=== PATIENT | female | born 1960 | race African-American/Black ===

== ENCOUNTER 2017-09-10 07:32 | Day surgery (SDC) | payer OTHER ==
[2017-09-04 16:12] VITALS: BMI 28.1
[~2017-09-10 07:32] MED LIST: LACTATED RINGERS 1,000 ML IV SCH
[2017-09-10 09:10] LABS: Glucose,Whole Blood 81 mg/dL (75-99)
[2017-09-10 09:14] VITALS: RESP 16; TEMP 97
[2017-09-10] MEDS ORDERED: LIDOCAINE 1% 20 ML VIAL (10MG/ML) FOR IV START INTRADERMA ONE (09:15)
[2017-09-10] MEDS ORDERED: PROPOFOL 10 MG/ML 20 ML VIAL IV ONE (09:33)
--- NOTE | 2017-09-10 09:54 | P.PCN ---
Date of Procedure: 09/10/17 Procedure(s) Performed: Procedure: Total colonoscopy. Preoperative diagnosis: Screening for neoplasia. Postoperative diagnosis: Mild sigmoid diverticulosis with no evidence of acute diverticulitis, strictures, polyps or cancer. Preparation: HalfLytely prep. Sedation: Was provided by anesthesia. Brief clinical history: The patient is a 56-year-old female who is scheduled for this evaluation for screening for neoplasia because of family history of colon cancer in her father. He had a prior exam more than 10 years ago. She has no abdominal complaints, bleeding or anemia. Procedure: With the patient on her left lateral decubitus position and after informed consent and adequate sedation the perianal area was inspected and it did not show any fissures or fistulas. There were no masses felt on digital rectal examination. The Olympus CFQ 160L video colonoscope was then inserted in the rectum in the usual fashion and advanced to the cecum. The mucosa appeared healthy. No polyps or tumors were seen. Mild sigmoid diverticulosis was noted with no evidence of acute diverticulitis or strictures. I retroflexed the endoscope in the rectum before the endoscope was withdrawn. The patient tolerated the procedure well. Plan: The patient was reassured. Discussed dietary measures. She will follow- up with you as planned and I recommended repeat exam in 5 years because of her family history.
[2017-09-10 10:16] VITALS: BP 109/64; PULSE 84
== END 2017-09-10 10:32 | disposition home or self-care (01) ==
LOC: ORWHC2ENDO 07:32
DX: Z12.11 Encounter for screening for malignant neoplasm of colon (principal); K57.30 Diverticulosis of large intestine without perforation or abscess without bleeding; E11.9 Type 2 diabetes mellitus without complications; E03.9 Hypothyroidism, unspecified; F17.200 Nicotine dependence, unspecified, uncomplicated; Z80.0 Family history of malignant neoplasm of digestive organs; Z79.84 Long term (current) use of oral hypoglycemic drugs; Z79.899 Other long term (current) drug therapy
CPT/HCPCS: G0105; J2704

== ENCOUNTER 2020-12-09 10:52 | Observation (INO) | payer BC, OTHER ==
--- NOTE | 2020-12-09 11:21 | ED ---
General Adult HPI - General Chief complaint: Syncope Stated complaint: syncope Time Seen by Provider: 12/09/20 10:57 Source: patient, RN notes reviewed Mode of arrival: ambulatory Limitations: no limitations - History of Present Illness Initial comments: Patient is a pleasant 60-year-old female presenting to the emergency Department with complaints of syncopal episode. Episode occurred in the middle the night. Patient did get up out of bed. Patient did take her time and did rest at the side of the bed for several minutes. Patient then walked a proximally 20 feet and suddenly things surgical dark. Patient then passed out. Patient did strike her knees on the floor. Patient has chronic severe arthritis of the knees. Patient does not believe she hit her head but did lose consciousness. No neck or back pain. No chest pain or dyspnea. No abdominal discomfort. Patient states over the past 6 months she has had several near-syncopal episodes however has never passed out before. - Related Data Home Medications Medication Instructions Recorded Confirmed Levothyroxine Sodium [Synthroid] 50 mcg PO AC-BRKFST 09/04/17 12/09/20 Allergies Allergy/AdvReac Type Severity Reaction Status Date / Time No Known Allergies Allergy Verified 12/09/20 12:51 Review of Systems ROS Statement: Those systems with pertinent positive or pertinent negative responses have been documented in the HPI. ROS Other: All systems not noted in ROS Statement are negative. Constitutional: Denies: fever Eyes: Denies: eye pain ENT: Denies: ear pain Respiratory: Denies: cough, dyspnea Cardiovascular: Denies: chest pain Endocrine: Denies: fatigue Gastrointestinal: Denies: abdominal pain Genitourinary: Denies: dysuria Musculoskeletal: Denies: back pain Skin: Denies: rash Neurological: Denies: headache, weakness, confusion Past Medical History Past Medical History: Diabetes Mellitus, Thyroid Disorder Additional Past Medical History / Comment(s): freq diarhea History of Any Multi-Drug Resistant Organisms: None Reported Past Surgical History: Breast Surgery Additional Past Surgical History / Comment(s): rt breast bx,tooth extraction Additional Past Anesthesia/Blood Transfusion Reaction / Comment(s): no hx general anesthesia Past Psychological History: No Psychological Hx Reported Smoking Status: Current every day smoker Past Alcohol Use History: None Reported Past Drug Use History: None Reported - Past Family History Mother Family Medical History: No Reported History Father Family Medical History: Cancer Additional Family Medical History / Comment(s): colon CA Sister(s) Family Medical History: Cancer Additional Family Medical History / Comment(s): skin General Exam Limitations: no limitations General appearance: alert, in no apparent distress Head exam: Present: atraumatic, normocephalic Eye exam: Present: normal appearance, PERRL, EOMI ENT exam: Present: normal oropharynx Neck exam: Present: normal inspection. Absent: tenderness Respiratory exam: Present: normal lung sounds bilaterally Cardiovascular Exam: Present: regular rate, normal rhythm Expanded Peripheral pulses: 2+: Radial (R), Radial (L), Posterior Tibialis (R), Posterior Tibialis (L) GI/Abdominal exam: Present: soft. Absent: tenderness, pulsatile mass Extremities exam: Present: other (Bilateral anterior knee tenderness. ) Neurological exam: Present: alert, oriented X3, CN II-XII intact. Absent: motor sensory deficit Expanded Neurological exam: Present: protecting the airway Speech: Present: fluid speech Cranial nerves: EOM's Intact: Normal, Facial Sensation: Normal Motor strength exam: RUE: 5, LUE: 5, RLE: 5, LLE: 5 Eye Response: (4) open spontaneously Motor Response: (6) obeys commands Verbal Response: (5) oriented Psychiatric exam: Present: normal affect, normal mood Skin exam: Present: normal color Course Vital Signs 12/09/20 12/09/20 10:53 11:11 Temperature 97.7 F 97.7 F Pulse Rate 97 85 Respiratory 20 16 Rate Blood Pressure 118/74 112/68 O2 Sat by Pulse 98 100 Oximetry EKG Findings - EKG Comments: EKG Findings:: Normal sinus rhythm 73. AK 140. QRS 70. QT 374. QTC 412. Normal axis. Normal QRS. No acute ST change. Medical Decision Making - Medical Decision Making Patient reevaluated and resting comfortably in bed. Patient remained symptom free. Patient updated on results and plan. Case was discussed with Dr. white, covering for Dr. Walker, who will admit. Cardiology will be placed on consult - Lab Data Result diagrams: 12/09/20 11:32 12/09/20 11:32 Lab Results 12/09/20 12/09/20 12/09/20 Range/Units 11:32 11:32 11:32 WBC 9.7 (3.8-10.6) k/uL RBC 3.94 (3.80-5.40) m/uL Hgb 12.3 (11.4-16.0) gm/dL Hct 36.5 (34.0-46.0) % MCV 92.6 (80.0-100.0) fL MCH 31.2 (25.0-35.0) pg MCHC 33.7 (31.0-37.0) g/dL RDW 13.5 (11.5-15.5) % Plt Count 260 (150-450) k/uL MPV 7.6 Neutrophils % 77 % Lymphocytes % 17 % Monocytes % 4 % Eosinophils % 1 % Basophils % 0 % Neutrophils # 7.4 (1.3-7.7) k/uL Lymphocytes # 1.6 (1.0-4.8) k/uL Monocytes # 0.4 (0-1.0) k/uL Eosinophils # 0.1 (0-0.7) k/uL Basophils # 0.0 (0-0.2) k/uL PT 9.8 (9.0-12.0) sec INR 0.9 (<1.2) APTT 24.8 (22.0-30.0) sec Sodium (137-145) mmol/L Potassium (3.5-5.1) mmol/L Chloride (98-107) mmol/L Carbon Dioxide (22-30) mmol/L Anion Gap mmol/L BUN (7-17) mg/dL Creatinine (0.52-1.04) mg/dL Est GFR (CKD-EPI)AfAm (>60 ml/min/1.73 sqM) Est GFR (CKD-EPI)NonAf (>60 ml/min/1.73 sqM) Glucose (74-99) mg/dL Calcium (8.4-10.2) mg/dL Magnesium (1.6-2.3) mg/dL Total Bilirubin (0.2-1.3) mg/dL AST (14-36) U/L ALT (4-34) U/L Alkaline Phosphatase (38-126) U/L Troponin I (0.000-0.034) ng/mL Total Protein (6.3-8.2) g/dL Albumin (3.5-5.0) g/dL Urine Color Light Yellow Urine Appearance Clear (Clear) Urine pH 8.0 (5.0-8.0) Ur Specific [place] 1.015 (1.001-1.035) Urine Protein Negative (Negative) Urine Glucose (UA) Negative (Negative) Urine Ketones Negative (Negative) Urine Blood Negative (Negative) Urine Nitrite Negative (Negative) Urine Bilirubin Negative (Negative) Urine Urobilinogen <2.0 (<2.0) mg/dL Ur Leukocyte Esterase Trace H (Negative) Urine RBC 2 (0-5) /hpf Urine WBC <1 (0-5) /hpf Ur Squamous Epith Cells 3 (0-4) /hpf Urine Mucus Occasional H (None) /hpf 12/09/20 12/09/20 Range/Units 11:32 11:32 WBC (3.8-10.6) k/uL RBC (3.80-5.40) m/uL Hgb (11.4-16.0) gm/dL Hct (34.0-46.0) % MCV (80.0-100.0) fL MCH (25.0-35.0) pg MCHC (31.0-37.0) g/dL RDW (11.5-15.5) % Plt Count (150-450) k/uL MPV Neutrophils % % Lymphocytes % % Monocytes % % Eosinophils % % Basophils % % Neutrophils # (1.3-7.7) k/uL Lymphocytes # (1.0-4.8) k/uL Monocytes # (0-1.0) k/uL Eosinophils # (0-0.7) k/uL Basophils # (0-0.2) k/uL PT (9.0-12.0) sec INR (<1.2) APTT (22.0-30.0) sec Sodium 134 L (137-145) mmol/L Potassium 4.9 (3.5-5.1) mmol/L Chloride 99 (98-107) mmol/L Carbon Dioxide 25 (22-30) mmol/L Anion Gap 10 mmol/L BUN 19 H (7-17) mg/dL Creatinine 1.05 H (0.52-1.04) mg/dL Est GFR (CKD-EPI)AfAm 66 (>60 ml/min/1.73 sqM) Est GFR (CKD-EPI)NonAf 57 (>60 ml/min/1.73 sqM) Glucose 181 H (74-99) mg/dL Calcium 9.2 (8.4-10.2) mg/dL Magnesium 2.2 (1.6-2.3) mg/dL Total Bilirubin 0.4 (0.2-1.3) mg/dL AST 26 (14-36) U/L ALT 16 (4-34) U/L Alkaline Phosphatase 56 (38-126) U/L Troponin I <0.012 (0.000-0.034) ng/mL Total Protein 7.1 (6.3-8.2) g/dL Albumin 4.2 (3.5-5.0) g/dL Urine Color Urine Appearance (Clear) Urine pH (5.0-8.0) Ur Specific [place] (1.001-1.035) Urine Protein (Negative) Urine Glucose (UA) (Negative) Urine Ketones (Negative) Urine Blood (Negative) Urine Nitrite (Negative) Urine Bilirubin (Negative) Urine Urobilinogen (<2.0) mg/dL Ur Leukocyte Esterase (Negative) Urine RBC (0-5) /hpf Urine WBC (0-5) /hpf Ur Squamous Epith Cells (0-4) /hpf Urine Mucus (None) /hpf - Radiology Data Radiology results: report reviewed (Computed tomography scan of the brain shows atrophy and chronic small vessel change without acute process.), image reviewed (Two-view chest x-ray shows no acute process. Bilateral knee x-ray shows no fracture or dislocation. Osteoarthritis) Disposition Clinical Impression: Syncope Disposition: ADMITTED IP TO THIS HOSP Is patient prescribed a controlled substance at d/c from ED?: No Referrals: Michael Saravia MD [Primary Care Provider] - 1-2 days Decision Time: 12:56
[2020-12-09 11:53] LABS: Basophils % (A) 0 %; Eosinophils # (A) 0.1 k/uL (0-0.7); Eosinophils % (A) 1 %; HCT 36.5 % (34.0-46.0); HGB 12.3 gm/dL (11.4-16.0); Lymphocytes # (A) 1.6 k/uL (1.0-4.8); Lymphocytes % (A) 17 %; MCH 31.2 pg (25.0-35.0); MCHC 33.7 g/dL (31.0-37.0); MCV 92.6 fL (80.0-100.0); Mean Platelet Volume 7.6; Monocytes # (A) 0.4 k/uL (0-1.0); Monocytes % (A) 4 %; Neutrophils # (A) 7.4 k/uL (1.3-7.7); Neutrophils % (A) 77 %; Platelet Count 260 k/uL (150-450); RBC 3.94 m/uL (3.80-5.40); RDW 13.5 % (11.5-15.5); WBC 9.7 k/uL (3.8-10.6)
[2020-12-09 11:55] LABS: Appearance,Urine Clear (Clear); Bilirubin,Urine Negative (Negative); Blood,Urine Negative (Negative); Color,Urine Light Yellow; Glucose,Urine (UA) Negative (Negative); Ketones,Urine Negative (Negative); Leukocyte Esterase,Urine Trace (Negative); Mucus,Urine Occasional /hpf; Nitrite,Urine Negative (Negative); Protein,Urine Negative (Negative); RBC,Urine 2 /hpf (0-5); Specific Gravity,Urine 1.015 (1.001-1.035); Squamous Epithelial Cell,Urine 3 /hpf (0-4); Urobilinogen,Urine <2.0 mg/dL (<2.0); WBC,Urine <1 /hpf (0-5)
--- NOTE | 2020-12-09 11:58 | CT ---
EXAMINATION TYPE: CT brain wo con DATE OF EXAM: 12/09/2020 COMPARISON: None HISTORY: Syncope CT DLP: 1013.[address] of the brain was performed. The ventricles, basal cisterns and sulci overlying the cerebral convexities demonstrate mild enlargem ent. There is no evidence for intracranial hemorrhage or sulcal effacement. There is decreased attenuation about the periventricular white matter and deep white matter of both c erebral hemispheres, compatible with chronic small vessel ischemia. Differential diagnosis does inclu de demyelination. No mass effects are seen.No midline shift. Osseous calvarium is intact. If symptoms persist consider MRI. IMPRESSION: 1. Age related atrophic and chronic small vessel ischemic change without acute intracranial process s een at this time.
[2020-12-09 12:04] LABS: Albumin 4.2 g/dL (3.5-5.0); Calcium 9.2 mg/dL (8.4-10.2); Magnesium 2.2 mg/dL (1.6-2.3); Potassium 4.9 mmol/L (3.5-5.1); Total Bilirubin 0.4 mg/dL (0.2-1.3); Total Protein 7.1 g/dL (6.3-8.2)
[2020-12-09 12:08] LABS: INR 0.9 (<1.2); Partial Thromboplastin Time 24.8 sec (22.0-30.0); Prothrombin Time 9.8 sec (9.0-12.0)
--- NOTE | 2020-12-09 12:27 | XR ---
EXAMINATION TYPE: XR chest 2V DATE OF EXAM: 12/09/2020 COMPARISON: NONE HISTORY: Syncope TECHNIQUE: Frontal and lateral views of the chest are obtained. FINDINGS: There is no focal air space opacity, pleural effusion, or pneumothorax seen. The cardiac silhouette size is within normal limits. There are overlying leads. There is a gentle spinal curvatu re which may be positional. The osseous structures are intact. IMPRESSION: No acute cardiopulmonary process.
--- NOTE | 2020-12-09 12:29 | XR ---
Bilateral knees HISTORY: Trauma and pain 3 views of each knee submitted There is marginal spurring is present in the medial compartments and patellofemoral joints greater th an lateral compartments, joint space loss is present greater than the medial compartment on the left than on the right and at the patellofemoral joints. Alignment and bone mineralization are maintained. Suprapatellar increased density is present consistent with joint effusions. IMPRESSION: No fracture or dislocation. Osteoarthritis.
[2020-12-09] MEDS ORDERED: NALOXONE 0.4 MG/ML 1 ML VIAL IV PRN (12:56)
--- NOTE | 2020-12-09 17:16 | P.HPIM ---
History of Present Illness Patient is a pleasant 60-year-old female came in with a syncopal episode EKG is within normal limits sinus rhythm without any acute abnormality. Patient was having near syncopes and lightheadedness for a while never passed out. Patient doesn't have any seizure-like activity denied any bowel or bladder incontinence. We will obtain orthostatic vitals. Patient was started on IV fluids and admitted for monitoring we'll also obtain an echocardiogram. Patient is bit tachycardic mildly elevated serum creatinine and hyponatremic probably mild dehydration. Review of Systems REVIEW OF SYSTEMS: CONSTITUTIONAL: No fever, no malaise, no fatigue. HEENT: No recent visual problems or hearing problems. Denied any sore throat. CARDIOVASCULAR: No chest pain, orthopnea, PND, no palpitatione. PULMONARY: No shortness of breath, no cough, no hemoptysis. GASTROINTESTINAL: No diarrhea, no nausea, no vomiting, no abdominal pain. NEUROLOGICAL: No headaches, no weakness, no numbness. HEMATOLOGICAL: Denies any bleeding or petechiae. GENITOURINARY: Denies any burning micturition, frequency, or urgency. MUSCULOSKELETAL/RHEUMATOLOGICAL: Denies any joint pain, swelling, or any muscle pain. ENDOCRINE: Denies any polyuria or polydipsia. The rest of the 14-point review of systems is negative. Past Medical History Past Medical History: Diabetes Mellitus, Eye Disorder, GERD/Reflux, Osteoarthritis (OA), Syncope, Thyroid Disorder Additional Past Medical History / Comment(s): NIDDM type II, neuropathy bilateral feet toes, murmur, hypothyroid, past syncope as a teen, bilateral knee arthritis, diverticular disease, bilateral eye glaucoma History of Any Multi-Drug Resistant Organisms: None Reported Past Surgical History: Breast Surgery Additional Past Surgical History / Comment(s): rt breast bx,vtooth extractions, colonoscopy Past Anesthesia/Blood Transfusion Reactions: No Reported Reaction Additional Past Anesthesia/Blood Transfusion Reaction / Comment(s): no hx general anesthesia Smoking Status: Current every day smoker - Past Family History Mother Family Medical History: Hypertension Additional Family Medical History / Comment(s): Mother is 91 yrs old. Father Family Medical History: Cancer Additional Family Medical History / Comment(s): colon CA Sister(s) Family Medical History: Cancer Additional Family Medical History / Comment(s): skin Medications and Allergies Home Medications Medication Instructions Recorded Confirmed Type Levothyroxine Sodium [Synthroid] 50 mcg PO AC-BRKFST 09/04/17 12/09/20 History Acetaminophen [Tylenol] 325 mg PO DAILY PRN 12/09/20 12/09/20 History Ascorbic Acid [Vitamin C] 1,000 mg PO PC-LUNCH 12/09/20 12/09/20 History Atorvastatin [Lipitor] 10 mg PO PC-BRKFST 12/09/20 12/09/20 History Calcium Carb/Magnesium Hydrox 1 tab PO DAILY PRN 12/09/20 12/09/20 History [Rolaids Chewable Tablet] Calcium Carbonate [Calcium] 1,200 mg PO PC-LUNCH 12/09/20 12/09/20 History Cholecalciferol [Vitamin D3 (25 50 mcg PO PC-LUNCH 12/09/20 12/09/20 History Mcg = 1000 Iu)] Dorzolamide/Timolol/Pf 1 drop BOTH EYES BID 12/09/20 12/09/20 History [Dorzolamide 2%-Timolol 0.5%] Latanoprost/Pf [Latanoprost 0.005% 1 drop BOTH EYES HS 12/09/20 12/09/20 History Eye Drop] Magnesium Hydroxide [Milk of 2,400 mg PO DAILY PRN 12/09/20 12/09/20 History Magnesia] glipiZIDE XL [Glucotrol XL] 5 mg PO PC-BRKFST 12/09/20 12/09/20 History metFORMIN HCL ER [Glucophage Xr] 500 mg PO PC-BID 12/09/20 12/09/20 History Allergies Allergy/AdvReac Type Severity Reaction Status Date / Time No Known Allergies Allergy Verified 12/09/20 12:51 Physical Exam Vitals: Vital Signs Temp Pulse Pulse Resp BP BP Pulse Ox 12/09/20 16:07 97.6 F 103 H 16 103/66 97 12/09/20 15:35 89 18 117/77 100 12/09/20 14:33 72 18 111/70 97 12/09/20 11:11 97.7 F 85 16 112/68 100 12/09/20 10:53 97.7 F 97 20 118/74 98 Intake and Output 12/09/20 12/09/20 12/09/20 06:59 14:59 22:59 Other: Weight 68.039 kg 68.039 kg PHYSICAL EXAMINATION: GENERAL: The patient is alert and oriented x3, not in any acute distress. Well developed, well nourished. HEENT: Pupils are round and equally reacting to light. EOMI. No scleral icterus. No conjunctival pallor. Normocephalic, atraumatic. No pharyngeal erythema. No thyromegaly. CARDIOVASCULAR: S1 and S2 present. No murmurs, rubs, or gallops. PULMONARY: Chest is clear to auscultation, no wheezing or crackles. ABDOMEN: Soft, nontender, nondistended, normoactive bowel sounds. No palpable organomegaly. MUSCULOSKELETAL: No joint swelling or deformity. EXTREMITIES: No cyanosis, clubbing, or pedal edema. NEUROLOGICAL: Gross neurological examination did not reveal any focal deficits. SKIN: No rashes. Results CBC & Chem 7: 12/09/20 11:32 12/09/20 11:32 Labs: Abnormal Lab Results - Last 24 Hours (Table) 12/09/20 12/09/20 Range/Units 11:32 11:32 Sodium 134 L (137-145) mmol/L BUN 19 H (7-17) mg/dL Creatinine 1.05 H (0.52-1.04) mg/dL Glucose 181 H (74-99) mg/dL Ur Leukocyte Esterase Trace H (Negative) Urine Mucus Occasional H (None) /hpf Thrombosis Risk Factor Assmnt - Choose All That Apply Any of the Below Risk Factors Present?: Yes Other Risk Factors: Yes Each Risk Factor Represents 2 Points: Age 61-74 years Other congenital or acquired thrombophilia - If yes, enter type in comment: No Thrombosis Risk Factor Assessment Total Risk Factor Score: 2 Thrombosis Risk Factor Assessment Level: Low Risk Assessment and Plan Plan: -Syncope: Probably secondary to mild the dehydration patient was started on IV fluids echo will be obtained to rule out any cardiac causes or valvular abnormalities. Patient will be monitored overnight on telemetry. -Hypovolemic hyponatremia: IV fluids as mentioned above -Mild acute renal failure patient will be continued on IV fluids will obtain basic metabolic profile -hypothyroidism will obtain TSH because of syncope continue with levothyroxine -Nicotine use: Counseling was provided -Patient has diagnosed of diabetes blood sugars are 181, although not on any medications will obtain hemoglobin A1c.
[2020-12-09] MEDS: SODIUM CHLORIDE 0.9% 1,000 ML IV SCH (17:56)
[2020-12-09] MEDS ORDERED: ACETAMINOPHEN TAB 325 MG TAB PO PRN (18:05)
[2020-12-09] MEDS ORDERED: MAGNESIUM HYDROXIDE 2,400 MG/10 ML CUP PO PRN (18:05)
[2020-12-09 18:22] LABS: Glucose,Whole Blood 118 mg/dL (75-99)
[2020-12-09 20:59] LABS: Glucose,Whole Blood 187 mg/dL (75-99)
[2020-12-09] MEDS: INSULIN ASPART (NovoLOG) 100 UNIT/ML VIAL SQ SCH (21:19)
[2020-12-10 01:09] LABS: Hemoglobin A1C 6.3 % (4.0-6.0)
[2020-12-10] MEDS: SODIUM CHLORIDE 0.9% 1,000 ML IV SCH (02:41)
[2020-12-10] MEDS: DORZOLAMIDE-TIMOLOL 2.23%/0.68 10ML BTL BOTH EYES SCH ×2 (02:41→07:59)
[2020-12-10 07:23] LABS: Glucose,Whole Blood 96 mg/dL (75-99)
[2020-12-10] MEDS ORDERED: LEVOTHYROXINE 50 MCG TAB PO SCH (07:30)
[2020-12-10] MEDS: INSULIN ASPART (NovoLOG) 100 UNIT/ML VIAL SQ SCH ×2 (07:58→12:19)
[2020-12-10] MEDS ORDERED: ATORVASTATIN 10 MG TAB PO SCH (08:30)
[2020-12-10 09:31] LABS: African American GFR (CKD) 62.8 (60.0-200.0); Anion Gap 4.2 mmol/L (4.00-12.00); BUN/Creat Ratio 16.36 Ratio (12.00-20.00); Calcium 9.3 mg/dL (8.7-10.3); Carbon Dioxide 27.8 mmol/L (21.6-31.8); Non-African American GFR(CKD) 54.1 (60.0-200.0); Potassium 4.5 mmol/L (3.5-5.5)
--- NOTE | 2020-12-10 10:25 | P.CRDCN ---
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 She has a history of diabetes, hypothyroidism and hyperlipidemia. She has no history of hypertension and no personal or family history of CAD. She is a current every day smoker of about half a pack a does not consume alcohol or caffeine. She presented to the emergency department after waking in the middle the night to go to the bathroom at which time she became very dizzy and lightheaded and states she blacked out and woke up on the floor. She does have episodes of dizziness upon standing but has never lost consciousness in the past. Over the past year or so she has lost about 50 pounds. Since that time she has been noticing episodes of dizziness and her blood pressure has been running in the 90s systolic at her office visits with her primary care physician. The dizziness seems worse with position changes but she also has episodes when she feels significantly exhausted. She does know that when she drinks smart water which has sodium and it she feels better. Over the summer when she was walking regularly she would consume some table salt prior to walking and on those days she felt fairly well after her activity but on days that she did not do this she felt very sluggish and had significant dizziness with position changes. CT of the brain on admission showed age-related atrophic and chronic small vessel ischemic change without acute intracranial process. Chest x-ray showed no acute cardiopulmonary process. EKG showed normal sinus rhythm with no evidence of acute ischemia. Laboratory values show normal CBC, sodium of 134 with a repeat this morning of 140, potassium 4.9, BUN 19, creatinine 1.05, hemoglobin A1c of 6.3, troponins negative 3 and a TSH of 2.550. Orthostatic blood pressures show a blood pressure of 95/62 sitting and 84/51 standing. Blood pressure has been running a systolic of 90s-110s. At the time my examination the patient is resting comfortably in bed. She has no current complaints of dizziness, lightheadedness and has had no further syncope. She's had no chest discomfort, shortness of br eath, or edema. Past Medical History Past Medical History: Diabetes Mellitus, Eye Disorder, GERD/Reflux, Osteoarthritis (OA), Syncope, Thyroid Disorder Additional Past Medical History / Comment(s): NIDDM type II, neuropathy bilateral feet toes, murmur, hypothyroid, past syncope as a teen, bilateral knee arthritis, diverticular disease, bilateral eye glaucoma History of Any Multi-Drug Resistant Organisms: None Reported Past Surgical History: Breast Surgery Additional Past Surgical History / Comment(s): rt breast bx,vtooth extractions, colonoscopy Past Anesthesia/Blood Transfusion Reactions: No Reported Reaction Additional Past Anesthesia/Blood Transfusion Reaction / Comment(s): no hx general anesthesia Smoking Status: Current every day smoker - Past Family History Mother Family Medical History: Hypertension Additional Family Medical History / Comment(s): Mother is 91 yrs old. Father Family Medical History: Cancer Additional Family Medical History / Comment(s): colon CA Sister(s) Family Medical History: Cancer Additional Family Medical History / Comment(s): skin Medications and Allergies Home Medications Medication Instructions Recorded Confirmed Type Levothyroxine Sodium [Synthroid] 50 mcg PO -BRKFST 09/04/17 12/09/20 History Acetaminophen [Tylenol] 325 mg PO DAILY PRN 12/09/20 12/09/20 History Ascorbic Acid [Vitamin C] 1,000 mg PO PC-LUNCH 12/09/20 12/09/20 History Atorvastatin [Lipitor] 10 mg PO PC-BRKFST 12/09/20 12/09/20 History Calcium Carb/Magnesium Hydrox 1 tab PO DAILY PRN 12/09/20 12/09/20 History [Rolaids Chewable Tablet] Calcium Carbonate [Calcium] 1,200 mg PO PC-LUNCH 12/09/20 12/09/20 History Cholecalciferol [Vitamin D3 (25 50 mcg PO PC-LUNCH 12/09/20 12/09/20 History Mcg = 1000 Iu)] Dorzolamide/Timolol/Pf 1 drop BOTH EYES BID 12/09/20 12/09/20 History [Dorzolamide 2%-Timolol 0.5%] Latanoprost/Pf [Latanoprost 0.005% 1 drop BOTH EYES HS 12/09/20 12/09/20 History Eye Drop] Magnesium Hydroxide [Milk of 2,400 mg PO DAILY PRN 12/09/20 12/09/20 History Magnesia] glipiZIDE XL [Glucotrol XL] 5 mg PO PC-BRKFST 12/09/20 12/09/20 History metFORMIN HCL ER [Glucophage Xr] 500 mg PO PC-BID 12/09/20 12/09/20 History Allergies Allergy/AdvReac Type Severity Reaction Status Date / Time No Known Allergies Allergy Verified 12/09/20 12:51 Physical Exam Vitals: Vital Signs Temp Pulse Pulse Pulse Pulse Pulse Resp 12/10/20 07:00 98 F 74 16 12/10/20 02:00 79 16 12/09/20 20:00 98.2 F 104 H 16 12/09/20 17:54 105 H 121 H 86 12/09/20 16:07 97.6 F 103 H 16 12/09/20 15:35 89 18 12/09/20 14:33 72 18 12/09/20 11:11 97.7 F 85 16 12/09/20 10:53 97.7 F 97 20 BP BP BP BP BP Pulse Ox 12/10/20 07:00 102/69 100 12/10/20 02:00 94/60 100 12/09/20 20:00 97/65 100 12/09/20 17:54 95/62 84/51 95/61 12/09/20 16:07 103/66 97 12/09/20 15:35 117/77 100 12/09/20 14:33 111/70 97 12/09/20 11:11 112/68 100 12/09/20 10:53 118/74 98 Intake and Output 12/09/20 12/10/20 12/10/20 22:59 06:59 14:59 Intake Total 300 1650 180 Balance 300 1650 180 Intake: Intake, IV Titration 1200 Amount Sodium Chloride 0.9% 1, 1200 000 ml @ 100 mls/hr IV . Q10H [facility] Rx#:[id number] Oral 300 450 180 Other: Voiding Method Toilet Toilet # Voids 1 3 # Bowel Movements 1 Weight 68.039 kg PHYSICAL EXAMINATION: This is a 60-year-old female in no apparent distress at the time of my examination. VITAL SIGNS: Blood pressure 102/69, heart rate 74, respirations 16, temp 98F. Patient is 100% on room air. HEENT: Head is atraumatic, normocephalic. Pupils are equal, round. Sclerae anicteric. Conjunctivae are clear. Mucous membranes of the mouth are moist. Neck is supple. There is no elevated jugular venous pressure. No carotid bruit is heard. CHEST EXAMINATION: Clear to auscultation bilaterally. No wheezes rales or rhonchi. Respirations even and nonlabored. HEART EXAMINATION: Heart regular, positive S1 and S2. No S3. No S4. No clicks, rubs or murmurs. ABDOMEN: Soft, nontender. Bowel sounds are heard. No organomegaly noted. EXTREMITIES: 2+ peripheral pulses with no evidence of peripheral edema and no calf tenderness noted. NEUROLOGIC EXAMINATION: Patient is awake, alert and oriented x3. Results 12/09/20 11:32 12/10/20 06:12 Cardiac Enzymes 12/09/20 12/09/20 12/09/20 Range/Units 11:32 11:32 15:04 AST 26 (14-36) U/L Troponin I <0.012 <0.012 (0.000-0.034) ng/mL 12/09/20 Range/Units 17:43 AST (14-36) U/L Troponin I <0.012 (0.000-0.034) ng/mL Coagulation 12/09/20 Range/Units 11:32 PT 9.8 (9.0-12.0) sec APTT 24.8 (22.0-30.0) sec CBC 12/09/20 Range/Units 11:32 WBC 9.7 (3.8-10.6) k/uL RBC 3.94 (3.80-5.40) m/uL Hgb 12.3 (11.4-16.0) gm/dL Hct 36.5 (34.0-46.0) % Plt Count 260 (150-450) k/uL Comprehensive Metabolic Panel 12/09/20 12/10/20 Range/Units 11:32 06:12 Sodium 134 L 140 (137-145) mmol/L Potassium 4.9 4.5 (3.5-5.1) mmol/L Chloride 99 108 (98-107) mmol/L Carbon Dioxide 25 27.8 (22-30) mmol/L BUN 19 H 18.0 (7-17) mg/dL Creatinine 1.05 H 1.1 (0.52-1.04) mg/dL Glucose 181 H 100 (74-99) mg/dL Calcium 9.2 9.3 (8.4-10.2) mg/dL AST 26 (14-36) U/L ALT 16 (4-34) U/L Alkaline Phosphatase 56 (38-126) U/L Total Protein 7.1 (6.3-8.2) g/dL Albumin 4.2 (3.5-5.0) g/dL Current Medications Generic Name Dose Route Start Last Admin Trade Name Freq PRN Reason Stop Dose Admin Acetaminophen 325 mg 12/09/20 18:05 12/09/20 21:23 Acetaminophen Tab 325 Mg Tab PO 325 mg DAILY PRN Administration Pain Ascorbic Acid 1,000 mg 12/10/20 13:30 Ascorbic Acid 500 Mg Tab PO PC-LUNCH PARDEEP Atorvastatin Calcium 10 mg 12/10/20 08:30 12/10/20 07:59 Atorvastatin 10 Mg Tab PO 10 mg PC-BRKFST PARDEEP Administration Calcium Carbonate/Glycine 1,000 mg 12/10/20 13:30 Calcium Carbonate 500 Mg Chewable PO PC-LUNCH PARDEEP Cholecalciferol 50 mcg 12/10/20 13:30 Cholecalciferol 25 Mcg (1000 Iu) Tablet PO PC-LUNCH [facility] Dorzolamide/Timolol 1 drops 12/09/20 21:00 12/10/20 07:59 Dorzolamide-Timolol 2.23%/0.68 10ml Btl BOTH EYES 1 drops BID PARDEEP Administration Glipizide 2.5 mg 12/10/20 08:30 12/10/20 07:59 Glipizide 2.5 Mg Tab PO 2.5 mg AC-BID PARDEEP Administration Sodium Chloride 1,000 mls @ 100 mls/hr 12/09/20 17:15 12/10/20 02:41 Saline 0.9% IV 100 mls/hr .Q10H PARDEEP Administration Insulin Aspart 0 unit 12/09/20 21:00 12/10/20 07:58 Insulin Aspart (Novolog) 100 Unit/Ml Vial SQ Not Given ACHS [facility] Protocol Levothyroxine Sodium 50 mcg 12/10/20 07:30 12/10/20 07:59 Levothyroxine 50 Mcg Tab PO 50 mcg AC-BRKFST PARDEEP Administration Magnesium Hydroxide 2,400 mg 12/09/20 18:05 Magnesium Hydroxide 2,400 Mg/10 Ml Cup PO DAILY PRN Constipation Naloxone HCl 0.2 mg 12/09/20 12:56 Naloxone 0.4 Mg/Ml 1 Ml Vial IV Q2M PRN Opioid Reversal Intake and Output 12/09/20 12/10/20 12/10/20 22:59 06:59 14:59 Intake Total 300 1650 180 Balance 300 1650 180 Intake: Intake, IV Titration 1200 Amount Sodium Chloride 0.9% 1, 1200 000 ml @ 100 mls/hr IV . Q10H [facility] Rx#:[id number] Oral 300 450 180 Other: Voiding Method Toilet Toilet # Voids 1 3 # Bowel Movements 1 Weight 68.039 kg 12/09/20 11:32 12/10/20 06:12 EKG Interpretations (text) Normal sinus rhythm Assessment and Plan Assessment: #1 syncope likely secondary to significant orthostatic hypotension #2 hypotension #3 diabetes #4 dyslipidemia #5 hypothyroidism Plan: From cardiology's perspective we will review 2-D echo with Doppler to assess cardiac structure and function. Episode of syncope likely secondary to orthostatic drop in blood pressure. Patient was advised increase fluids and salt intake. If there are no significant abnormalities noted on echo we anticipate the patient will be discharged and follow-up as an outpatient in 2 weeks. EXPLORATION GEOLOGIST note has been reviewed, I agree with a documented findings and plan of care. Patient was seen and examined.
[2020-12-10 11:59] LABS: Glucose,Whole Blood 105 mg/dL (75-99)
--- NOTE | 2020-12-10 12:41 | P.DS ---
Providers Date of admission: 12/09/20 12:59 Expected date of discharge: 12/10/20 Attending physician: Arian Corbin MD Consults: 12/09/20 12:57 Consult Physician Urgent Consulting Provider: Robby Kennedy Consult Reason/Comments: syncope Do you want consulting provider notified?: Yes Primary care physician: Jace Saravia [facility] Course: Final diagnosis -Syncope: Probably secondary to mild dehydration -Hypovolemic hyponatremia -Mild acute renal failure -hypothyroidism -Nicotine use: Counseling was provided -Diabetes mellitus type 2, hemoglobin A1c 6.3 Discharge disposition Patient is being discharged in a stable condition with guarded prognosis to home. Patient will follow-up with Dr. Saravia in the outpatient setting upon discharge. Patient also instructed to follow-up with cardiology in the outpatient setting. Total time taken is greater than 35 minutes. Hospital course Patient is a pleasant 60-year-old female came in with a syncopal episode EKG is within normal limits sinus rhythm without any acute abnormality. Patient was having near syncopes and lightheadedness for a while never passed out. Patient doesn't have any seizure-like activity denied any bowel or bladder incontinence. We will obtain orthostatic vitals. Patient was started on IV fluids and admitted for monitoring we'll also obtain an echocardiogram. Patient is bit tachycardic mildly elevated serum creatinine and hyponatremic probably mild dehydration. 12/10/2020 Patient was seen this morning with no acute overnight issues. Patient denies any dizziness or lightheadedness. Patient's orthopedic static vitals were normal patient was seen and evaluated by cardiology and underwent 2-D echo. Patient will be following up with cardiology in the outpatient setting. She also instructed to follow-up with primary care provider upon discharge. Patient instructed and encouraged to continue with oral hydration and increased salt in moderation in her diet. Patient also instructed to get up slowly and sit at the side of the bed or chair for 1-2 minutes before standing. Patient also instructed to follow-up with cardiology in the outpatient setting. Prescription provided for repeat labs in 2-3 days to monitor kidney functions. Patient also instructed to follow-up with primary care provider to discuss hospitalization and diabetes. Hemoglobin A1c is 6.3 and patient claims she is not on any medications. Currently no reports of chest pain, shortness of breath, or palpitations. Patient is afebrile. No reports of nausea or vomiting and patient is tolerating diet. Patient will be discharged home today. On exam vital signs are stable. Cardio S1, S2 are muffled. Respiratory system shows diminished breath sounds at the bases with no wheezing or rhonchi noted. Abdomen is soft and nontender. Nervous system show no focal deficits Please refer to medication reconciliation sheet for a list of medications. Patient Condition at Discharge: Stable Plan - Discharge Summary Discharge Rx Participant: No New Discharge Prescriptions: Continue Levothyroxine Sodium [Synthroid] 50 mcg PO AC-BRKFST Calcium Carbonate [Calcium] 1,200 mg PO PC-LUNCH Magnesium Hydroxide [Milk of Magnesia] 2,400 mg PO DAILY PRN PRN Reason: Constipation Cholecalciferol [Vitamin D3 (25 Mcg = 1000 Iu)] 50 mcg PO PC-LUNCH Calcium Carb/Magnesium Hydrox [Rolaids Chewable Tablet] 1 tab PO DAILY PRN PRN Reason: Gi Upset Acetaminophen [Tylenol] 325 mg PO DAILY PRN PRN Reason: Pain metFORMIN HCL ER [Glucophage Xr] 500 mg PO PC-BID Latanoprost/Pf [Latanoprost 0.005% Eye Drop] 1 drop BOTH EYES HS Dorzolamide/Timolol/Pf [Dorzolamide 2%-Timolol 0.5%] 1 drop BOTH EYES BID Atorvastatin [Lipitor] 10 mg PO PC-BRKFST glipiZIDE XL [Glucotrol XL] 5 mg PO PC-BRKFST Ascorbic Acid [Vitamin C] 1,000 mg PO PC-LUNCH Discharge Medication List Levothyroxine Sodium [Synthroid] 50 mcg PO AC-BRKFST 09/04/17 [History] Acetaminophen [Tylenol] 325 mg PO DAILY PRN 12/09/20 [History] Ascorbic Acid [Vitamin C] 1,000 mg PO PC-LUNCH 12/09/20 [History] Atorvastatin [Lipitor] 10 mg PO PC-BRKFST 12/09/20 [History] Calcium Carb/Magnesium Hydrox [Rolaids Chewable Tablet] 1 tab PO DAILY PRN 12/09/20 [History] Calcium Carbonate [Calcium] 1,200 mg PO PC-LUNCH 12/09/20 [History] Cholecalciferol [Vitamin D3 (25 Mcg = 1000 Iu)] 50 mcg PO PC-LUNCH 12/09/20 [History] Dorzolamide/Timolol/Pf [Dorzolamide 2%-Timolol 0.5%] 1 drop BOTH EYES BID 12/09/20 [History] Latanoprost/Pf [Latanoprost 0.005% Eye Drop] 1 drop BOTH EYES HS 12/09/20 [History] Magnesium Hydroxide [Milk of Magnesia] 2,400 mg PO DAILY PRN 12/09/20 [History] glipiZIDE XL [Glucotrol XL] 5 mg PO PC-BRKFST 12/09/20 [History] metFORMIN HCL ER [Glucophage Xr] 500 mg PO PC-BID 12/09/20 [History] Follow up Appointment(s)/Referral(s): Michael Saravia MD [Primary Care Provider] - 1-2 days Ambulatory/Diagnostic Orders: Basic Metabolic Panel [LAB.AMB] Time Frame: 3 Days, Location: None Selected Activity/Diet/Wound Care/Special Instructions: dc pending normal echo Activity limited until follow up follow up with primary care provider upon discharge get up slowly and sit on the chair or edge of bed 1-2 minutes before standing encourage fluids and increase salt in diet (in moderation) follow up cardiology outpatient continue to monitor sugars and keep a diary of readings for follow up hold metformin and resume on Saturday Discharge Disposition: HOME SELF-CARE
[2020-12-10] MEDS ORDERED: CALCIUM CARBONATE 500 MG CHEWABLE PO SCH (13:30)
[2020-12-10] MEDS ORDERED: ASCORBIC ACID 500 MG TAB PO SCH (13:30)
[2020-12-10] MEDS ORDERED: CHOLECALCIFEROL 25 MCG (1000 IU) TABLET PO SCH (13:30)
[2020-12-10 14:06] VITALS: BP 106/68; PULSE 73; RESP 18; TEMP 98.1
--- NOTE | 2020-12-13 12:00 | ECHOF ---
Referral Reason:syncope MEASUREMENTS -------- HEIGHT: 170.2 cm WEIGHT: 68.0 kg BP: RVIDd: 2.0 cm (< 3.3) IVSd: 0.6 cm (0.6 - 1.1) LVIDd: 4.1 cm (3.9 - 5.3) LVPWd: 0.7 cm (0.6 - 1.1) IVSs: 0.9 cm LVIDs: 2.8 cm LVPWs: 1.1 cm Ao Diam: 2.3 cm (2.0 - 3.7) AV Cusp: 1.5 cm (1.5 - 2.6) LA Diam: 2.1 cm (2.7 - 3.8) MV EXCURSION: 12.451 mm (> 18.000) MV EF SLOPE: 32 mm/s (70 - 150) EPSS: 1.2 cm MV E Mian: 0.48 m/s MV DecT: 199 ms MV A Mian: 0.39 m/s MV E/A Ratio: 1.20 RAP: 5.00 mmHg RVSP: 18.20 mmHg FINDINGS -------- This was a technically good study. The left ventricular size is normal. Left ventricular wall thickness is normal. Overall left vent ricular systolic function is low-normal with, an EF between 50 - 55 %. The right ventricle is normal in size. The left atrial size is normal. The right atrial size is normal. The aortic valve is trileaflet and appears structurally normal. The mitral valve is normal. The mitral valve leaflets are mildly thickened. Mild mitral regurgita tion is present. The tricuspid valve appears structurally normal. Mild tricuspid regurgitation present. Right vent ricular systolic pressure is normal at < 35 mmHg. There is no pulmonic regurgitation present. The aortic root size is normal. The inferior vena cava was not well visualized. There is no pericardial effusion. CONCLUSIONS -------- 1. The left ventricular size is normal. 2. Left ventricular wall thickness is normal. 3. Overall left ventricular systolic function is low-normal with, an EF between 50 - 55 %. 4. The mitral valve leaflets are mildly thickened. 5. There is no pericardial effusion. MILK HAULER: Funmilayo Cm RDCS
== END 2020-12-10 15:09 | disposition home or self-care (01) ==
LOC: EC 10:52 → 6NMEDSUR 12:59
PROVIDERS: ADMIT Internal Medicine; ATTEND Internal Medicine
DX: R55 Syncope and collapse (principal); E86.1 Hypovolemia; E87.1 Hypo-osmolality and hyponatremia; N17.9 Acute kidney failure, unspecified; E03.9 Hypothyroidism, unspecified; R00.0 Tachycardia, unspecified; I95.9 Hypotension, unspecified; R79.89 Other specified abnormal findings of blood chemistry; H40.9 Unspecified glaucoma; K21.9 Gastro-esophageal reflux disease without esophagitis; M17.0 Bilateral primary osteoarthritis of knee; E11.40 Type 2 diabetes mellitus with diabetic neuropathy, unspecified; G62.9 Polyneuropathy, unspecified; R01.1 Cardiac murmur, unspecified; K59.00 Constipation, unspecified; E78.5 Hyperlipidemia, unspecified; F17.210 Nicotine dependence, cigarettes, uncomplicated; Z87.19 Personal history of other diseases of the digestive system; Z79.890 Hormone replacement therapy; Z79.899 Other long term (current) drug therapy; Z79.84 Long term (current) use of oral hypoglycemic drugs; Z82.49 Family history of ischemic heart disease and other diseases of the circulatory system; Z80.0 Family history of malignant neoplasm of digestive organs; Z80.8 Family history of malignant neoplasm of other organs or systems; Z20.822 Contact with and (suspected) exposure to COVID-19
CPT/HCPCS: 99285; 36415; 93005; 93306; 80053; 80048; 84443; 83735; 84484; 85025; 85610; 85730; 81001; 83036; 87635; 73562; 71046; 70450; G0378 ×2

== ENCOUNTER → 2022-09-03 | Outpatient (CLI) | payer BC ==
--- NOTE | 2022-09-04 20:12 | MM ---
Reason for Exam: Screening (asymptomatic). Last mammogram was performed 5 year(s) and 0 month(s) ago. Patient History: Menarche at age 11. First Full-Term at age 29. Late child-bearing (after 30). Postmenopausal. Benign Excisional Biopsy on the right side. Risk Values: 5 year model risk: 2.5%. NCI Lifetime model risk: 11.0%. Prior Study Comparison: 05/02/2011 Screening Mammogram, Unknown. 02/09/2013 Bilateral Screening Mammogram, [facility]. 02/17/2013 Right MG work up mamm w CAD RT, Unknown. 03/19/2016 Bilateral MG screening mammo w CAD - 2, Unknown. 09/11/2017 Bilateral MG screening mammo w CAD - 2, Unknown. Tissue Density: There are scattered fibroglandular densities. Findings: Analyzed By CAD. There is no suspicious group of microcalcifications or new suspicious mass in either breast. Overall Assessment: Negative, BI-RAD 1 Management: Screening Mammogram of both breasts in 1 year. 1. Patient should continue monthly self breast exams. 2. A clinical breast exam by your physician is recommended on an annual basis. 3. This exam should not preclude additional follow-up of suspicious palpable abnormalities. Electronically signed and approved by: Lisha Boswell M.D. Radiologist
== END | disposition home or self-care (01) ==
LOC: RADMAMWWP 16:04
PROVIDERS: ATTEND Family Medicine
DX: Z12.31 Encounter for screening mammogram for malignant neoplasm of breast (principal); Z78.0 Asymptomatic menopausal state
CPT/HCPCS: 77063; 77067

== ENCOUNTER → 2024-01-13 | Outpatient (CLI) | payer BC ==
--- NOTE | 2024-01-14 08:33 | MM ---
Reason for Exam: Screening (asymptomatic). Last mammogram was performed 1 year(s) and 5 month(s) ago. Patient History: Menarche at age 11. First Full-Term at age 29. Late child-bearing (after 29). Postmenopausal. Benign Excisional Biopsy on the right side. Risk Values: 5 year model risk: 1.6%. NCI Lifetime model risk: 6.1%. Prior Study Comparison: 03/19/2016 Bilateral MG screening mammo w CAD - 2, Unknown. 09/11/2017 Bilateral MG screening mammo w CAD - 2, Unknown. 09/03/2022 Bilateral MG 3D screening mammo w/cad, [facility]. Tissue Density: There are scattered areas of fibroglandular density. Findings: Analyzed By CAD. Asymmetric density seen on the left MLO view above the level of the nipple approximately 8.2 cm from the nipple. Additional views are recommended which are to include a true lateral view, spot compression left MLO view and rolled medial cc view. No suspicious desiccation seen. Overall Assessment: Incomplete: need additional imaging evaluation, BI-RAD 0 Management: Diagnostic Mammogram of the left breast. . Patient should continue monthly self-breast exams. A clinical breast exam by your physician is recommended on an annual basis. This exam should not preclude additional follow-up of suspicious palpable abnormalities. Note on scores and lifetime risk: 1. A score greater than 3% is considered moderate risk. If this is the case, consider specialist referral to assess eligibility for a risk reducing agent. 2. If overall lifetime risk for the development of breast cancer is 20% or higher, the patient may qualify for future screening with alternating mammogram and breast MRI. Electronically signed and approved by: Damian Arvizu M.D. Radiologis
== END | disposition home or self-care (01) ==
LOC: RADMAMWWP 11:28
PROVIDERS: ATTEND Family Medicine
DX: Z12.31 Encounter for screening mammogram for malignant neoplasm of breast (principal); Z78.0 Asymptomatic menopausal state
CPT/HCPCS: 77063; 77067

== ENCOUNTER → 2024-01-15 | Outpatient (CLI) | payer BC ==
--- NOTE | 2024-01-15 14:28 | MM ---
Reason for Exam: Additional evaluation requested from abnormal screening. Last screening mammogram was performed less than 1 month ago. Patient History: Menarche at age 11. First Full-Term at age 29. Late child-bearing (after 30). Postmenopausal. Benign Excisional Biopsy on the right side. Risk Values: 5 year model risk: 1.6%. NCI Lifetime model risk: 6.1%. Prior Study Comparison: 03/19/2016 Bilateral MG screening mammo w CAD - 2, Unknown. 09/11/2017 Bilateral MG screening mammo w CAD - 2, Unknown. 09/03/2022 Bilateral MG 3D screening mammo w/cad, [facility]. 01/13/2024 Bilateral MG 3D screening mammo w/cad, [facility]. Tissue Density: Left: There are scattered areas of fibroglandular density. Findings: Analyzed By CAD. The pattern is symmetrical. No persistent distortion is evident. No suspicious groups of microcalcifications, spiculated or lobular masses, architectural distortion or other secondary signs of malignancy are mammographically apparent. Overall Assessment: Probably benign, BI-RAD 3 Management: Diagnostic Mammogram of the left breast in 6 months. A negative mammogram report should not preclude additional follow up of suspicious palpable abnormalities. Patient should continue monthly self breast exam. A clinical breast exam by your physician is recommended on an annual basis and results should be correlated with mammographic findings. Electronically signed and approved by: Cheko Andrews D.O. Radiologis
== END | disposition home or self-care (01) ==
LOC: RADMAMWWP 13:59
PROVIDERS: ATTEND Family Medicine
DX: R92.322 Mammographic fibroglandular density, left breast (principal); Z78.0 Asymptomatic menopausal state
CPT/HCPCS: 77061; 77065

== ENCOUNTER → 2024-03-06 | Outpatient (CLI) | payer BC ==
[2024-03-06 14:34] LABS: African American GFR (CKD) 52 (>60 ml/min/1.73 sqM); Blood Urea Nitrogen 21 mg/dL (7-17); Non-African American GFR(CKD) 45 (>60 ml/min/1.73 sqM)
--- NOTE | 2024-03-17 14:12 | CT ---
EXAMINATION TYPE: CT chest w con CT DLP: 279.1 mGycm, Automated exposure control for dose reduction was used. DATE OF EXAM: 03/06/2024 4:39 PM COMPARISON: Most recent is chest x-ray from 01/06/2021. I have no more recent chest imaging available CLINICAL INDICATION:Female, 63 years old with history of R91.8 OTHER NONSPECIFIC ABNORMAL FINDING OF LUNG F; PHH, abnormal findings of lung field TECHNIQUE: Multiple axial images were obtained through the chest. Sagittal and coronal reformats were created for review. Contrast used:100 mL of Isovue 300 with IV Contrast (None if empty) Oral contrast used: (None if empty) FINDINGS: There is a large lobulated conglomerate mass in the right upper lobe inferiorly, which extends from t he anterior pleural surface to the hilum, and abutting a long segment of the right side mediastinum. Mass is difficult to measure precisely but is up to approximately 5.4 cm craniocaudal, 8 cm AP, and 5 .5 cm transverse. In the hilum, branches of the bronchi are surrounded by conglomerate mass/hilar berna nopathy. Lower lobe bronchi appear slightly tapered and wall thickened, whereas at least one branch headed pos teriorly is tapered and occluded within the mass. Best seen on sagittal, the right middle lobe bronch us rapidly tapers at the hilum surrounded by soft tissue, and becomes occluded approximately 1 cm bey ond its origin. It obviously has a confluent pattern without easily measurable nodes. However, for re ference conglomerate soft tissues between the SVC and right upper lobe bronchus are about 2.1 cm in t hickness. Subcarinal tissues are up to 1.8 cm, right paratracheal tissues 1.6 cm, left paratracheal w ith extension into the AP window 1.9 cm. Abnormal paratracheal tissues extend along the trachea to ne rico the thoracic inlet. There is volume loss with wedge-shaped opacity throughout the right middle lobe consistent with compl ete collapse of this lobe. There are several satellite nodules at the periphery of the mass. Other than this, no clear-cut sizab le suspicious for malignancy. No pleural effusion or pneumothorax. Heart appears mildly enlarged. There is no significant pericardial fluid in. The pulmonary artery enh ances normally without visualized emboli. There is mild narrowing of some a mildly thickened and nodu lar appearance of the adrenals without clear evidence of mass. Branches within the right hilum, witho ut evidence of occlusion. Visualized aorta appears normal in course and caliber. Mass abuts a long segment of the right side of the mediastinum, and early direct invasion is possible. Limited cuts through the upper abdomen show mild thickening and nodularity of the adrenals, without f ocal mass. A vaguely defined hypoattenuating mass in the right hepatic lobe measuring up to 2.8 cm. Osseous structures appear intact, without evidence of lytic/blastic lesion. Minimal degenerative josue ges. No acute fracture. IMPRESSION: 1. Large right upper lobe lobulated conglomerate mass, consistent with malignancy, either primary shorty ng or metastatic. 2. Mass extends in contiguity to the right hilum, surrounding and narrowing bronchi and pulmonary ar terial branches without evidence of occlusion. 3. The right middle lobe bronchus quickly tapers beyond its origin and becomes occluded, resulting i n complete RML atelectasis. 4. At least one right hepatic lobe metastasis, measuring 2.[address] abdomen and pelvis, and/or PET CT, for further evaluation and staging purposes.
== END | disposition home or self-care (01) ==
LOC: RADCTMAIN 13:49
PROVIDERS: ATTEND Family Medicine
DX: C78.7 Secondary malignant neoplasm of liver and intrahepatic bile duct (principal); C80.1 Malignant (primary) neoplasm, unspecified; R91.8 Other nonspecific abnormal finding of lung field; J98.11 Atelectasis
CPT/HCPCS: 82565; 84520; 71260; 36415; Q9967